=== PATIENT | male | born 1965 | race Asian ===

== ENCOUNTER 2025-01-24 20:48 | Emergency (ER) | payer OTHER ==
[~2025-01-24] VITALS: Ht 175.3 cm; Wt 104.5 kg
[2025-01-24] MEDS ORDERED: CYCL-448 PO (20:59)
[2025-01-25 01:03] VITALS: BP 145/66; PULSE 69; RESP 16; TEMP 98.2; O2SAT 95
[2025-01-25] MEDS: TraMADol HCL 50 MG TABLET PO ONE (01:36)
[2025-01-25] MEDS: KETOROLAC TROMETHAMINE 30 MG/ML VIAL IM ONE (01:36)
[2025-01-25] MEDS: LIDOCAINE 5% TRANSDERMAL PATCH TD ONE (01:37)
[2025-01-25] MEDS ORDERED: LIDO-57 TP (05:05)
== END 2025-01-25 05:17 | disposition home or self-care (01) ==
LOC: EMS 20:48
DX: M79.18 Myalgia, other site (principal); M54.6 Pain in thoracic spine
CPT/HCPCS: 99283; 71045; 96372; J1885

== ENCOUNTER 2025-04-11 23:15 | Emergency (ER) | payer OTHER ==
[~2025-04-11] VITALS: Ht 172.7 cm; Wt 105.5 kg
[~2025-04-11 23:15] MED LIST: CYCL-448 PO; LIDO-57 TP
[2025-04-12] MEDS ORDERED: HYDR30CR3 TP (02:51)
[2025-04-12] MEDS ORDERED: AZIT250T9 PO (02:51)
[2025-04-12] MEDS: PERMETHRIN 5% 60 GM CREAM TP ONE (03:21)
== END 2025-04-12 03:26 | disposition home or self-care (01) ==
LOC: EMS 23:15
DX: J18.0 Bronchopneumonia, unspecified organism (principal); B88.9 Infestation, unspecified; Z79.899 Other long term (current) drug therapy
CPT/HCPCS: 71045; 99283